=== PATIENT | female | born 1970 | race Caucasian/White ===

== ENCOUNTER 2018-04-22 22:03 | Outpatient (REF) | payer MEDICAID, SELFPAY ==
[2018-04-22 22:20] LABS: HCT 37.8 % (36.0-46.0); HGB 12.3 g/dL (12.0-15.5); Mean Corp. HGB Concentration 32.5 g/dL (32.0-36.0); Mean Corpuscular Hemoglobin 32.5 pg (27.0-33.0); Mean Corpuscular Volume 99.7 fL (80-95); Platelet Count 176 x1000/uL (130-400); RBC 3.79 m/cumm (4.00-5.20); RBC Distribution Width 14.4 % (11.7-14.6); White Blood Cell Count 7.76 k/cumm (4.4-10.8)
[2018-04-22 22:29] LABS: ALT 26 U/L (12-78); AST 40 U/L (15-37); Albumin 4.1 g/dL (3.4-5.0); Alkaline Phosphatase 65 U/L (46-116); Anion Gap 7.4 mmol/L (3-11); BUN 18 mg/dL (7-18); Bilirubin, Total 0.2 mg/dL (0.2-1.0); CO2 29.6 mmol/L (21.0-32.0); Calcium 8.4 mg/dL (8.5-10.1); Chloride 103 mmol/L (98-107); Cholesterol 247 mg/dL (50-200); Estimated GFR 59.18 (mL/min/1.73m2); Glucose 76 mg/dL (70-100); HDL Cholesterol 60 mg/dL (40-60); LDL CHOLESTEROL 170 mg/dL (<100); Potassium 4.3 mmol/L (3.5-5.1); Sodium 140 mmol/L (136-145); Triglyceride 127 mg/dL (30-150)
[2018-04-23 07:10] LABS: Vitamin D 25 Total 23.8 ng/ml (30-100)
[2018-04-23 13:43] LABS: Vitamin B12 880 pg/mL (193-986)
[2018-04-24 09:34] LABS: Folate 20.4 ng/ml
[2018-04-24 09:52] LABS: Hepatitis C Ab w Rflx HCV PCR Negative (NEGAT)
== END 2018-04-22 22:04 ==
LOC: NCHCN 22:03
PROVIDERS: PCP Family Medicine; Visit Provider Family Medicine
DX: E61.1 Iron deficiency (principal); E55.9 Vitamin D deficiency, unspecified; D53.9 Nutritional anemia, unspecified; Z86.59 Personal history of other mental and behavioral disorders; Z11.59 Encounter for screening for other viral diseases; Z00.00 Encounter for general adult medical examination without abnormal findings
CPT/HCPCS: 80053; 80061; 82306; 83721; 85027; 86803; 82607; 82746

== ENCOUNTER 2019-04-16 09:41 | Outpatient (REF) | payer MEDICAID, SELFPAY ==
[2019-04-16 21:04] LABS: Abs Immature Grans 0.01 k/cumm (0.0-0.09); Absolute Basophil Count 0.04 k/cumm (0.0-0.2); Absolute Eosinophil Count 0.15 k/cumm (0.0-0.7); Absolute Monocyte Count 0.84 k/cumm (0.11-0.7); Absolute Neutrophil Count 6.65 k/cumm (1.2-6.7); Basophils % 0.4; Eosinophils % 1.6; HGB 13.3 g/dL (12.0-15.5); Immature Grans % 0.1; Lymphocytes % 16.3; Mean Corp. HGB Concentration 32.4 g/dL (32.0-36.0); Mean Corpuscular Volume 98.6 fL (80-95); Mean Platelet Volume 10.8 fL (8.0-11.0); Monocytes % 9.1; Neutrophils % 72.5; Platelet Count 195 x1000/uL (130-400); RBC 4.16 m/cumm (4.00-5.20); RBC Distribution Width 14.3 % (11.7-14.6); White Blood Cell Count 9.19 k/cumm (4.4-10.8)
[2019-04-16 21:27] LABS: Mono Screening Negative (Negative)
== END 2019-04-16 10:01 ==
LOC: NCHCN 09:41
PROVIDERS: PCP Family Medicine; Visit Provider Nurse Practitioner Family
DX: J02.9 Acute pharyngitis, unspecified (principal); K00.9 Disorder of tooth development, unspecified
CPT/HCPCS: 85025; 86308; 87070

== ENCOUNTER 2020-11-17 11:23 | Outpatient (REF) | payer MEDICAID, SELFPAY ==
[2020-11-17 20:28] LABS: ALT 43 U/L (16-63); AST 36 U/L (15-37); Albumin 4.6 g/dL (3.4-5.0); Alkaline Phosphatase 60 U/L (46-116); Anion Gap 9.3 mmol/L (3-11); BUN 20 mg/dL (7-18); Bilirubin, Total 0.3 mg/dL (0.2-1.0); CO2 28.7 mmol/L (21.0-32.0); CREATININE 0.9 mg/dL (0.70-1.30); Calcium 9.1 mg/dL (8.5-10.1); Calculated LDL 182 mg/dL (<100); Chloride 103 mmol/L (98-107); Cholesterol 278 mg/dL (<200); Glucose 83 mg/dL (74-106); HDL Cholesterol 83 mg/dL (40-60); Potassium 4.7 mmol/L (3.5-5.1); Sodium 141 mmol/L (136-145); Total Protein 7.8 g/dL (6.4-8.2); Triglyceride 69 mg/dL (<150)
[2020-11-20 05:26] LABS: Vitamin D 25 Total 25.5 ng/ml (30-100)
== END 2020-11-17 11:24 | disposition home or self-care (01) ==
LOC: NCHCN 11:23
PROVIDERS: PCP Family Medicine; Visit Provider Family Medicine
DX: E55.9 Vitamin D deficiency, unspecified (principal); F11.21 Opioid dependence, in remission
CPT/HCPCS: 80053; 80061; 82306

== ENCOUNTER 2022-12-10 12:30 | Outpatient (REF) | payer MEDICAID, SELFPAY ==
[2022-12-10 14:47] LABS: HCT 37.7 % (40.0-50.0); HGB 12.4 g/dL (13.5-17.5); MCH 32.4 pg (27.0-33.0); MCHC 32.9 % (32.0-36.0); MCV 98 fL (80-95); MPV 10.5 fL (8.0-11.0); Platelet Count 195 10^3/uL (130-400); RBC 3.83 10^6/uL (4.36-5.78); RDW 14.5 % (11.8-14.1); RDW-SD 52.7 fL; WBC 7.03 10^3/uL (4.4-10.8)
[2022-12-10 15:27] LABS: ALT 31 U/L (16-63); AST 26 U/L (15-37); Alkaline Phosphatase 64 U/L (46-116); Anion Gap 6.7 mmol/L (3-11); BUN 18 mg/dL (7-18); Bilirubin, Total 0.2 mg/dL (0.2-1.0); CO2 29.3 mmol/L (21.0-32.0); Calcium 8.7 mg/dL (8.5-10.1); Chloride 104 mmol/L (98-107); Glucose 92 mg/dL (74-106); Potassium 4.1 mmol/L (3.5-5.1); Sodium 140 mmol/L (136-145); Total Protein 7.1 g/dL (6.4-8.2); Vitamin B12 563 pg/mL (193-986); Vitamin D 25 Total 18.6 ng/mL (30-100)
[2022-12-10 18:26] LABS: FREE T4 0.23 ng/dL (0.76-1.46)
== END 2022-12-10 12:31 | disposition home or self-care (01) ==
LOC: NCHCN 12:30
PROVIDERS: PCP Family Medicine; Visit Provider Family Medicine
DX: Z00.00 Encounter for general adult medical examination without abnormal findings (principal); E55.9 Vitamin D deficiency, unspecified; R53.83 Other fatigue
CPT/HCPCS: 80053; 82306; 85027; 82607; 84439; 84443

== ENCOUNTER 2023-01-29 18:14 | Outpatient (REF) | payer MEDICAID, SELFPAY ==
[2023-01-29 18:45] LABS: HCT 41.2 % (40.0-50.0); HGB 13.4 g/dL (13.5-17.5); MCHC 32.5 % (32.0-36.0); MCV 98 fL (80-95); MPV 10.8 fL (8.0-11.0); Platelet Count 259 10^3/uL (130-400); RBC 4.19 10^6/uL (4.36-5.78); RDW 13.6 % (11.8-14.1); RDW-SD 49.8 fL; WBC 8.15 10^3/uL (4.4-10.8)
[2023-01-29 19:16] LABS: Iron 38 ug/dL (65-175); Total Iron Binding Capacity 265 ug/dL (250-450); Transferrin Sat 14 % (20-55)
[2023-01-29 19:26] LABS: TSH 18.84 uIU/mL (0.36-3.74)
[2023-01-29 19:35] LABS: Vitamin D 25 Total 40.7 ng/mL (30-100)
== END 2023-01-29 18:15 | disposition home or self-care (01) ==
LOC: NCHCN 18:14
PROVIDERS: PCP Family Medicine; Visit Provider Family Medicine
DX: E55.9 Vitamin D deficiency, unspecified (principal); E03.9 Hypothyroidism, unspecified; R53.83 Other fatigue; D53.8 Other specified nutritional anemias
CPT/HCPCS: 82306; 85027; 83540; 83550; 84443

== ENCOUNTER 2023-03-24 16:12 | Outpatient (REF) | payer MEDICAID, SELFPAY ==
[2023-03-24 15:44] LABS: HCT 36.8 % (40.0-50.0); HGB 12.1 g/dL (13.5-17.5); MCH 31.2 pg (27.0-33.0); MCHC 32.9 % (32.0-36.0); MCV 95 fL (80-95); Platelet Count 200 10^3/uL (130-400); RBC 3.88 10^6/uL (4.36-5.78); RDW 13.1 % (11.8-14.1); RDW-SD 45.1 fL; WBC 7.04 10^3/uL (4.4-10.8)
[2023-03-24 16:08] LABS: Iron 35 ug/dL (65-175); Total Iron Binding Capacity 211 ug/dL (250-450); Transferrin Sat 17 % (20-55)
[2023-03-24 16:13] LABS: TSH 1.05 uIU/mL (0.36-3.74)
== END 2023-03-24 16:13 | disposition home or self-care (01) ==
LOC: NCHCN 16:12
PROVIDERS: PCP Family Medicine; Visit Provider Family Medicine
DX: E03.9 Hypothyroidism, unspecified (principal); D53.9 Nutritional anemia, unspecified; D50.9 Iron deficiency anemia, unspecified
CPT/HCPCS: 85027; 83540; 83550; 84443

== ENCOUNTER 2024-04-29 17:10 | Outpatient (REF) | payer MEDICAID, SELFPAY ==
[2024-04-29 21:45] LABS: HCT 41.3 % (40.0-50.0); HGB 14.2 g/dL (13.5-17.5); MCH 31.5 pg (27.0-33.0); MCHC 34.4 % (32.0-36.0); MCV 92 fL (80-95); MPV 10.3 fL (8.0-11.0); Platelet Count 225 10^3/uL (130-400); RBC 4.51 10^6/uL (4.36-5.78); RDW 12.6 % (11.8-14.1); RDW-SD 42.3 fL; WBC 9.42 10^3/uL (4.4-10.8)
[2024-04-29 21:56] LABS: Iron 77 ug/dL (65-175); Total Iron Binding Capacity 357 ug/dL (250-450); Transferrin Sat 22 % (20-55)
[2024-04-29 22:36] LABS: ALT 29 U/L (16-63); AST 17 U/L (15-37); Albumin 3.9 g/dL (3.4-5.0); Alkaline Phosphatase 94 U/L (46-116); BUN 15 mg/dL (7-18); Bilirubin, Total 0.28 mg/dL (0.2-1.0); CREATININE 0.7 mg/dL (0.70-1.30); Calcium 8.8 mg/dL (8.5-10.1); Calculated LDL 167 mg/dL (<100); Chloride 105 mmol/L (98-107); Cholesterol 251 mg/dL (<200); Ferritin 107 ng/mL (26-388); Glucose 90 mg/dL (74-106); HDL Cholesterol 49 mg/dL (40-60); Potassium 4.3 mmol/L (3.5-5.1); Sodium 141 mmol/L (136-145); TSH 3.33 uIU/Ml (0.36-3.74); Total Protein 6.9 g/dL (6.4-8.2); Triglyceride 177 mg/dL (<150); Vitamin D 25 Total 22.7 ng/mL (30-100)
== END 2024-04-29 17:11 | disposition home or self-care (01) ==
LOC: NCHCN 17:10
PROVIDERS: PCP Family Medicine; Visit Provider Family Medicine
DX: E78.5 Hyperlipidemia, unspecified (principal); E03.9 Hypothyroidism, unspecified; E55.9 Vitamin D deficiency, unspecified; E61.1 Iron deficiency
CPT/HCPCS: 80053; 80061; 82306; 85027; 82728; 83540; 83550; 84443

== ENCOUNTER 2025-05-03 15:51 | Outpatient (REF) | payer MEDICAID, SELFPAY ==
[2025-05-03 16:04] LABS: HCT 42.4 % (40.0-50.0); HGB 13.9 g/dL (13.5-17.5); MCH 31.3 pg (27.0-33.0); MCHC 32.8 % (32.0-36.0); MCV 96 fL (80-95); MPV 10.6 fL (8.0-11.0); Platelet Count 206 10^3/uL (130-400); RBC 4.44 10^6/uL (4.36-5.78); RDW 13.0 % (11.8-14.1); RDW-SD 46.4 fL; WBC 9.43 10^3/uL (4.4-10.8)
[2025-05-03 16:43] LABS: ALT 26 U/L (16-63); AST 17 U/L (15-37); Albumin 4.0 g/dL (3.4-5.0); Alkaline Phosphatase 82 U/L (46-116); Anion Gap 7.9 mmol/L (3-11); BUN 18 mg/dL (7-18); Bilirubin, Total 0.3 mg/dL (0.2-1.0); CO2 33.1 mmol/L (21.0-32.0); Calcium 9.0 mg/dL (8.5-10.1); Calculated LDL 153 mg/dL (<100); Chloride 103 mmol/L (98-107); Cholesterol 225 mg/dL (<200); Estimated GFR 108.82 (mL/min/1.73m2); Glucose 110 mg/dL (74-106); HDL Cholesterol 52 mg/dL (>or=40); Potassium 4.5 mmol/L (3.5-5.1); Sodium 144 mmol/L (136-145); TSH 4.19 uIU/mL (0.36-3.74); Total Protein 7.1 g/dL (6.4-8.2); Triglyceride 101 mg/dL (<150); Vitamin D 25 Total 23 ng/mL (30-100)
== END 2025-05-03 15:52 | disposition home or self-care (01) ==
LOC: NCHCN 15:51
PROVIDERS: PCP Family Medicine; Visit Provider Family Medicine
DX: E78.5 Hyperlipidemia, unspecified (principal); E03.9 Hypothyroidism, unspecified; E61.1 Iron deficiency; E55.9 Vitamin D deficiency, unspecified
CPT/HCPCS: 80053; 80061; 82306; 85027; 84443

== ENCOUNTER 2025-07-13 11:09 | Outpatient (REF) | payer MEDICAID, SELFPAY ==
[2025-07-13 15:02] LABS: TSH 1.41 uIU/mL (0.55-4.78)
== END 2025-07-13 11:10 | disposition home or self-care (01) ==
LOC: NCHCN 11:09
PROVIDERS: PCP Family Medicine; Visit Provider Family Medicine
DX: E03.9 Hypothyroidism, unspecified (principal)
CPT/HCPCS: 84443